=== PATIENT | male | born 1965 | race Two or more races ===

== ENCOUNTER 2020-04-28 10:19 | Outpatient (CLI) | payer OTHER | END 2020-04-28 11:44 | disposition home or self-care (01) | LOC: OFIC 805 10:19 | PROVIDERS: ATTEND Otolaryngology Otology & Neurotology | DX: J02.8 Acute pharyngitis due to other specified organisms (principal); R13.19 Other dysphagia; K21.9 Gastro-esophageal reflux disease without esophagitis ==